=== PATIENT | female | born 1985 | race Caucasian/White ===

== ENCOUNTER 2023-12-07 18:18 | Emergency (ER) | payer OTHER ==
[~2023-12-07] VITALS: Ht 162.6 cm; Wt 62.8 kg
[2023-12-07 18:37] VITALS: BP 161/90; PULSE 109; RESP 18; TEMP 97.5; O2SAT 100
[2023-12-07] MEDS: bacitracin 15gm ointment TP ONE (19:07)
[2023-12-07] MEDS: TETanus/Pertussis (Acell)/Diphther VAC/PF (Tdap-Adult) 0.5ml syringe IMVAC ONE (19:08)
[2023-12-07] MEDS: LIDOCAINE 1%/EPI 1:100,000 inj. 10 ML multi-dose vial SQ ONE (19:16)
[2023-12-07] MEDS ORDERED: AMOX-580 PO (19:55)
[2023-12-07] MEDS: amox tr/potassium clavulanate 875/125mg TAB PO ONE (20:05)
== END 2023-12-07 20:14 | disposition home or self-care (01) ==
LOC: ER 18:20
DX: S51.812A Laceration without foreign body of left forearm, initial encounter (principal); Z79.2 Long term (current) use of antibiotics; W54.0XXA Bitten by dog, initial encounter; Y93.89 Activity, other specified; Y92.89 Other specified places as the place of occurrence of the external cause; Y99.8 Other external cause status
CPT/HCPCS: 12002; 73090; 90471; 90715; 99283; A6258; A6449